=== PATIENT | male | born 1995 | race Caucasian/White ===

== ENCOUNTER → 2025-08-06 | Outpatient (CLI) | payer SELFPAY ==
--- NOTE | 2025-08-06 16:11 | MRI_ITS ---
PROCEDURE: BRAIN WITHOUT CONTRAST 08/06/2025 REASON FOR EXAM: MIGRAINE HEADACHES TECHNIQUE: Procedure Code: MRIBR Modality: MR Procedure: BRAIN WITHOUT CONTRAST Multiplanar and multisequence images were obtained. COMPARISON: none FINDINGS: No intracerebral or extra-axial acute hemorrhage. No hyperacute or acute infarctions could be depicted. Normal MRI appearance of the cerebral and cerebellar parenchymal signals. Normal MRI appearance of different anatomical parts of the brain stem. Normal appearance of the ventricular system. No shift of midline structures. Normal MRI appearance of the petrous temporal bones and cerebellopontine angles with no obvious masses. Normal MRI appearance of orbital structures, both globes, optic nerves, optic chiasm, optic tracts and optic radiations. Scanned paranasal sinuses show no obvious abnormalities. MRI/Brain without Contrast IMPRESSION: Unremarkable study of the brain with no intracerebral or extra-axial hematomas or obvious ischemic changes. [facility]
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
== END | disposition home or self-care (01) ==
PROVIDERS: PCP Nurse Practitioner Family
DX: G43.909 Migraine, unspecified, not intractable, without status migrainosus (principal)
CPT/HCPCS: 70551